=== PATIENT | male | born 1995 | race Caucasian/White ===

== ENCOUNTER 2017-09-18 19:36 | Emergency (ER) | payer MEDICAID, OTHER ==
[~2017-09-18] VITALS: Ht 177.8 cm; Wt 100.0 kg
[~2017-09-18 19:36] MED LIST: AMOX500T PO; DICL50 PO
[2017-09-18 19:37] VITALS: BP 157/97; PULSE 98; RESP 16; TEMP 99; O2SAT 99
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
== END 2017-09-18 21:03 | disposition home or self-care (01) ==
LOC: NEPK 19:36
DX: S00.83XA Contusion of other part of head, initial encounter (principal); R51 Headache; F17.200 Nicotine dependence, unspecified, uncomplicated; V47.5XXA Car driver injured in collision with fixed or stationary object in traffic accident, initial encounter
CPT/HCPCS: 99282